=== PATIENT | male | born 1970 ===

== ENCOUNTER 2025-08-23 14:32 | Day surgery (SDC) | payer BC | END 2025-08-23 23:00 | disposition home or self-care (01) | LOC: RAD 14:32 → MRI 16:00 → RAD 23:00 | DX: M75.112 Incomplete rotator cuff tear or rupture of left shoulder, not specified as traumatic (principal); M75.111 Incomplete rotator cuff tear or rupture of right shoulder, not specified as traumatic | CPT/HCPCS: 20610; 73222; 77002; A9577; Q9967 ==

== ENCOUNTER 2025-10-10 06:07 | Day surgery (SDC) | payer BC ==
[~2025-10-10] VITALS: Ht 177.8 cm; Wt 95.5 kg
[2025-10-10] MEDS ORDERED: MULVITA PO (06:34)
[2025-10-10] MEDS ORDERED: CefTRIAXone Sodium 2,000 MG in NS 100 ML IV SCH (06:35)
[2025-10-10] MEDS ORDERED: NS 1,000 ML IV ONE ×2 (06:45→06:47)
[2025-10-10] MEDS ORDERED: Midazolam HCl 1MG / ML 2ML Vial ONE (07:04)
[2025-10-10] MEDS ORDERED: FentaNYL Citrate 50 MCG/ML 2 ML Injection ONE (07:04)
[2025-10-10] MEDS ORDERED: Bupivacaine HCl 0.25% 30 ML Injection ONE (07:05)
[2025-10-10] MEDS ORDERED: Dexmedetomidine HCL 200 MCG / 2 ML ONE (07:08)
--- NOTE | 2025-10-10 07:20 | NUR ---
10/10/25 8232 Carolina Beckford , BLANCA AT BEDSIDE. GAVE PT TEACHING FOR INCENTIVE SPIROMETER.
[2025-10-10] MEDS ORDERED: Rocuronium Bromide 10 MG/ML 5ML Injection IV ONE ×2 (08:01→09:00)
--- NOTE | 2025-10-10 08:26 | NUR ---
10/10/25 0826 Felix Gonzalez 1MG OF EPI ADDED TO FIRST BAG OF LR USED FOR JOINT IRRIGATION DURING CASE.
[2025-10-10] MEDS ORDERED: Ketorolac Tromethamine 30mg Vial ONE (09:00)
[2025-10-10] MEDS ORDERED: Ondansetron HCl 2 MG / ML 2ML Vial ONE (09:00)
[2025-10-10] MEDS ORDERED: Sugammadex Sodium 200 MG/2ML SDV (100 MG/ML) ONE (09:07)
[2025-10-10 09:54] VITALS: BP 99/68
--- NOTE | 2025-10-10 09:57 | NUR ---
10/10/25 0957 Shama Ashton PT. DENIES ANY PAIN OR NAUSEA. PT. WAKES UP TO VOICE BUT THEN FALLS BACK TO SLEEP. PT. STATES "SLEEPY". PT. WITH LEFT ARM IN SLING. PT. WITH GOOD CAP REFILL TO LEFT FINGERS. WHEN TOUCHED BY RN PT. STATES JUST FEELS PRESSURE. PT. SATS 94% ON RA. PT. LUNGS CLEAR ANTERIORLY.
== END 2025-10-10 11:16 | disposition home or self-care (01) ==
LOC: ORSCSDS 06:07
PROVIDERS: Orthopaedic Surgery
PROC: 0LM24ZZ Reattachment of Left Shoulder Tendon, Percutaneous Endoscopic Approach (ICD-10-PCS; principal; 2025-10-10 07:30)
PROC: 0RNK4ZZ Release Left Shoulder Joint, Percutaneous Endoscopic Approach (ICD-10-PCS; principal; 2025-10-10 07:30)
DX: M75.122 Complete rotator cuff tear or rupture of left shoulder, not specified as traumatic (principal); M75.22 Bicipital tendinitis, left shoulder; M75.52 Bursitis of left shoulder; M75.42 Impingement syndrome of left shoulder
CPT/HCPCS: C1713; J0166; J0696; J1885; J2250; J2405; J2704; J3010; J7030; J7120